=== PATIENT | male | born 1945 | race Caucasian/White ===

== ENCOUNTER 2019-07-24 10:40 | Outpatient (CLI) | payer MEDICARE, OTHER ==
[2019-07-24] MEDS ORDERED: IOVERSOL 320 50 ML VIAL ONE (11:08)
[2019-07-24] MEDS ORDERED: IOVERSOL 320 100 ML VIAL IVP ONE ×2 (11:08→16:04)
[2019-07-24 11:24] LABS: CALCIUM 8.9 mg/dL (8.5-10.3); CREATININE 0.8 mg/dL (0.6-1.2)
[2019-07-24] MEDS ORDERED: IOVERSOL 320 50 ML VIAL PO ONE (16:04)
--- NOTE | 2019-07-25 21:38 | CT Report ---
Reason: INGUINAL SWELLING Procedure Date: 07/24/2019 Accession Number: [id number] / [id number] Procedure: CT - Abdomen/Pelvis W CPT Code: FULL RESULT: EXAM: CT ABDOMEN AND PELVIS EXAM DATE: 07/24/2019 12:13 PM. CLINICAL HISTORY: INGUINAL SWELLING. COMPARISONS: None. TECHNIQUE: Routine helical CT imaging was performed through the abdomen and pelvis. IV contrast: 100 cc Optiray 320. Enteric contrast: Yes. Reconstructions: Coronal and sagittal. 7 minute delayed imaging was obtained through the liver and kidneys. In accordance with CT protocol optimization, one or more of the following dose reduction techniques were utilized for this exam: automated exposure control, adjustment of mA and/or KV based on patient size, or use of iterative reconstructive technique. FINDINGS: Imaged chest: Unremarkable. Liver: The liver demonstrates a few scattered low-density foci, some of which represent cysts, others are too small to accurately characterize and indeterminate but statistically likely to represent tiny cysts. Gallbladder: Unremarkable. Biliary: Unremarkable. Pancreas: Unremarkable. Spleen: There is a subcentimeter low density lesion within the lower pole the spleen too small to actually characterize but likely represents a small cyst. Adrenal glands: Unremarkable. Kidneys: The kidneys demonstrate a few scattered low-density foci, some of which represent cysts, others are too small to accurately characterize and indeterminate but statistically likely to represent tiny cysts. Urinary bladder: Slightly thick-walled, likely secondary to chronic bilateral obstruction. There is a tiny right posterior bladder wall diverticulum. Reproductive organs: Enlarged prostate. Bowel: Unremarkable. Stomach: Unremarkable. Appendix: Unremarkable. Miscellaneous: No free fluid. No extraluminal gas. Aorta: Mild aortic atherosclerosis. Normal in caliber. Lymph nodes: No pathologically enlarged lymph nodes identified. Bones: No acute fracture. No suspicious osseous lesions. Sidewalls: Moderate sized fat-containing bilateral inguinal hernias. IMPRESSION: 1. Moderate sized fat-containing bilateral inguinal hernias. 2. The liver and kidneys demonstrate scattered low-density foci, some of which represent cysts, others are too small to accurately characterize and indeterminate but statistically likely to represent cysts. No suspicious masses identified. 3. Enlarged prostate. Thick-walled urinary bladder, likely secondary to chronic bladder outlet obstruction, however, cystitis should be excluded clinically. RADIA
== END 2019-07-24 10:41 | disposition home or self-care (01) ==
LOC: DI 10:40
PROVIDERS: ATTEND Nurse Practitioner Family
DX: K40.20 Bilateral inguinal hernia, without obstruction or gangrene, not specified as recurrent (principal); K76.89 Other specified diseases of liver; Q61.02 Congenital multiple renal cysts; N40.0 Benign prostatic hyperplasia without lower urinary tract symptoms; N32.89 Other specified disorders of bladder
CPT/HCPCS: 36415; 74177; 80048; Q9967

== ENCOUNTER 2021-01-15 10:19 | Outpatient (CLI) | payer MEDICARE, OTHER | END 2021-01-15 10:20 | disposition home or self-care (01) | LOC: DI 10:19 | PROVIDERS: ATTEND Physician Assistant | DX: I44.7 Left bundle-branch block, unspecified (principal) | CPT/HCPCS: 93306 ==

== ENCOUNTER 2021-02-17 08:41 | Outpatient (CLI) | payer MEDICARE, OTHER ==
--- NOTE | 2021-02-17 11:46 | CARDIAC PROCEDURE NOTE ---
Stress Test Report Service Date: 02/17/21 Ordering Provider: Crystal Pearce NP/Zelda Jaimes Indication for Test: Left Bundle Branch Block Pre-op eval (for double hernia repair). Cardiac Risk Factors: Male gender, HTN Type of Stress Test: ETT with Myocardial Perfusion Imaging Procedure: After signing informed consent, the patient underwent a treadmill stress test, with nuclear myocardial perfusion imaging. Resting HR: 54 Peak HR: 145( 98% predicted maximum heart rate for age) Resting BP: 144/88 Peak BP: 202/91, then BP dropped to 196/91 at the final part of exercise, then BP carla to 222/105 after 1 min of recovery. The patient exercised for 5 minutes and 47 seconds on a Chandu-protocol treadmill stress test. He achieved a peak heart rate of 145 (98% PMHR), and 7.05 METS. He had no chest pain, and had mild SOB at peak. He reported his perceived exertion at 15/20 at peak, on the Jeremy scale. His oxygen saturation was 96-98% on room air throughout the test. Resting EKG: Sinus bradycardia, rate 54, LBBB. EKG in final stage: frequent multi-focal PVCs, several ventricular couplets and also ventricular triplets at rate 190, rare PACs, several blocked PACs creating short pauses, 2 runs of slow-VTach at rate of 56. These were all asymptomatic. EKG at peak: LBBB, therefore cannot use ST segments or T waves for evaluating for ischemia. Summary: 1) Abnormal resting EKG 2) Abnormal hypertensive BP response to exercise (but patient said he had not taken a.m. BP med and forgot BP med for 2 days). 3) Abnormal drop in peak BP at peak of exercise, suggests ischemia. 4) Abnormal rhythm at peak exercise, this also suggests ischemia. 5) EKG cannot be used to evaluate for ST segments or T wave changes, due to LBBB. 6) This patient's cardiac risk: High 7) Nuclear images were reported separately and showed: A small fixed perfusion defect of the distal sourav-septal wall is present, consistent with prior infarct. There is also reversible ischemia along the anterior margin of the infarct, consistent with jaya-infarct ischemia. Normal overall LVEF. IMPRESSION: 1) BP poorly controlled; and possible non-compliance with BP meds. 2) Ventricular dysrythmias with exercise are seen and drop in BP at peak exercise suggest ischemia. 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 RECOMMENDATIONS: 1) Patient was told that results may warrant no biking across the [place] (in late February). 2) Start daily Enteric coated ASA 81 mg, and aggressive risk factor management 3) Cardiology referral, and recommend a coronary angiogram.
--- NOTE | 2021-02-17 16:07 | Nuclear Medicine Report ---
PROCEDURE: Rest and exercise myocardial perfusion SPECT with gated imaging and ejection fraction INDICATIONS: LEFT BUNDLE BRANCH BLOCK RADIOPHARMACEUTICAL: 14.1 mCi Tc-99m Myoview IV at rest and 41.5 mCi Tc-99m Myoview IV at peak exerc ise. [id number] was performed. TECHNIQUE: Radiopharmaceutical was injected at peak stress test, and also at rest. SPECT images wer e obtained. SPECT myocardial perfusion images were displayed in short axis, horizontal long axis, an d vertical long axis views. Gated images were reviewed using [employer] software. COMPARISON: None available. CARDIAC STRESS: A standard Chandu treadmill exercise tolerance test was performed by the patient under the supervision of an attending staff. The patient exercised for 5 minutes and 47 seconds; functional aerobic impai rment (TODD) is 7%. Hemodynamic data: There is hypertensive blood pressure response to exercise stress with maximum bloo d pressure of 222/105 in early recovery. Patient achieved 98% of maximum predicted heart rate at pea k exercise. FINDINGS: Raw data: There is good myocardial labeling by radiotracer. No significant motion artifacts. Lung- to-heart ratio is 0.3 (normal is less than 0.46 for tetrafosmin tracer). Left ventricle function: Gated images demonstrate normal left ventricle wall thickening. No segment al wall motion abnormality. No transient ischemic dilation; TID is 0.87 (normal less than 1.30). Th e left ventricle resting end-diastolic volume is 91 mL. Left ventricle stress ejection fraction is 6 4%; normal values are above 45%. Myocardial perfusion: There is normal relative distribution of activity in the left and right ventri cular myocardium. There is a small fixed perfusion defect within the distal anteroseptal wall which p ersists on prone imaging consistent with sequelae of a prior infarct. There is a small reversible com ponent along the anterior margin suggestive of a small region of jaya-infarct ischemia. IMPRESSION: 1. Abnormal myocardial perfusion images with a small fixed perfusion defect in the distal anterosepta l wall compatible with a prior infarct. A small reversible component along the anterior margin is sug gestive of a small region of jaya-infarct ischemia. 2. Normal left ventricular ejection fraction without segmental wall motion abnormalities. PQRS ATTESTATIONS: Measure 322 - Is this imaging test primarily performed on a low-risk surgery patient for preoperative evaluation within 30 days preceding their low-risk non-cardiac surgery? Low-risk surgery is defined as cardiac or myocardial infarction less than 1%, including (but not limited to) endoscopic pr ocedures, superficial procedures, cataract surgery, and excisional breast surgery: Answer: No Measure 323 - Is this imaging test performed primarily for the monitoring of an asymptomatic patient who had percutaneous coronary intervention on the visit date or within 2 years of the visit date? An swer: No Measure 324 - Is this imaging test performed primarily for the initial detection and risk assessment on an asymptomatic, low coronary heart disease patient? Low CHD risk definition = clinicians should consider the maximum number of available patient factors used to estimate risk based on [place] (A TP III criteria), typically age, gender, diabetes, smoking status, and use of blood pressure medicati on, and integrate age appropriate estimates for missing elements, such as LDL or standard blood press ure. Answer: No Reviewed by: Kaden Fofana MD on 02/17/2021 4:06 PM PDT Approved by: Kaden Fofana MD on 02/17/2021 4:06 PM PDT Station ID: [id number]
== END 2021-02-17 08:42 | disposition home or self-care (01) ==
LOC: DI 08:41
PROVIDERS: ATTEND Physician Assistant
DX: R94.39 Abnormal result of other cardiovascular function study (principal); I49.8 Other specified cardiac arrhythmias; I10 Essential (primary) hypertension
CPT/HCPCS: 78452; 93017; A9500